=== PATIENT | female | born 1990 | race Caucasian/White ===

== ENCOUNTER 2017-06-12 15:49 | Emergency (ER) | payer OTHER ==
[~2017-06-12] VITALS: Ht 175.3 cm; Wt 86.4 kg
[~2017-06-12 15:49] MED LIST: ALPR0.5T8 PO; LEVO25TA4 PO
[2017-06-12 16:32] LABS: GLUCOSE,POINT OF CARE 102 MG/DL (70-110)
[2017-06-12] MEDS ORDERED: LIDOCAINE HCL 1% 10 ML VIAL INJ ONE (17:15)
[2017-06-12] MEDS ORDERED: BACITRACIN 0.9 GM PACKET OINTMENT TP ONE (18:00)
[2017-06-12 18:36] VITALS: BP 133/76
== END 2017-06-12 18:42 | disposition home or self-care (01) ==
LOC: EMS 15:50
DX: S09.90XA Unspecified injury of head, initial encounter (principal); S01.111A Laceration without foreign body of right eyelid and periocular area, initial encounter; E03.9 Hypothyroidism, unspecified; R03.0 Elevated blood-pressure reading, without diagnosis of hypertension; F41.9 Anxiety disorder, unspecified; R79.89 Other specified abnormal findings of blood chemistry; Z88.1 Allergy status to other antibiotic agents; Z88.8 Allergy status to other drugs, medicaments and biological substances; W18.49XA Other slipping, tripping and stumbling without falling, initial encounter; Y93.89 Activity, other specified; Y92.89 Other specified places as the place of occurrence of the external cause; Y99.9 Unspecified external cause status
CPT/HCPCS: 12011; 82962; 99283; J3490

== ENCOUNTER 2017-06-15 13:46 | Emergency (ER) | payer OTHER ==
[~2017-06-15] VITALS: Ht 175.3 cm; Wt 85.0 kg
[2017-06-15 14:55] VITALS: BP 119/81
== END 2017-06-15 14:59 | disposition home or self-care (01) ==
LOC: EMS 13:48
DX: Z48.01 Encounter for change or removal of surgical wound dressing (principal); S01.81XD Laceration without foreign body of other part of head, subsequent encounter; E03.9 Hypothyroidism, unspecified; Z88.1 Allergy status to other antibiotic agents; X58.XXXD Exposure to other specified factors, subsequent encounter; Y92.89 Other specified places as the place of occurrence of the external cause; Y99.8 Other external cause status
CPT/HCPCS: 99281

== ENCOUNTER 2017-06-17 09:52 | Emergency (ER) | payer OTHER ==
[~2017-06-17] VITALS: Ht 175.3 cm; Wt 85.0 kg
[2017-06-17] MEDS ORDERED: MECL12.585 PO (10:16)
[2017-06-17 11:55] VITALS: BP 129/74
== END 2017-06-17 11:56 | disposition home or self-care (01) ==
LOC: EMS 09:52
DX: Z48.02 Encounter for removal of sutures (principal); E03.9 Hypothyroidism, unspecified; Z88.1 Allergy status to other antibiotic agents
CPT/HCPCS: 99281